=== PATIENT | male | born 1995 | race Caucasian/White ===

== ENCOUNTER 2023-03-08 09:45 | Emergency (ER) | payer OTHER ==
[~2023-03-08] VITALS: Ht 174 cm; Wt 91.0 kg
[~2023-03-08 09:45] MED LIST: BACTRIM DS1 TAB PO; CIPROFLOXACN250 MG PO; DILAUDID 2MG2 MG/TA1 PO; DOXYCYC MONO100 M1 PO; DOXYCYCL HYC100 MG PO; MEDDOSEPAK PO
[2023-03-08 09:50] VITALS: BP 135/88
[2023-03-08 10:00] VITALS: BP 143/87
[2023-03-08 10:17] LABS: BASO% 0.2 % (0-3); EOS% 1.6 % (0-8); HEMATOCRIT 46.9 % (39.0-50.0); HEMOGLOBIN 15.5 g/dl (14.0-18.0); IMMATURE GRANULOCYTES 0.7 % (0.0-5.0); LYMPH% 14.2 % (15-41); MEAN CORPUSCULAR HGB 29.1 pG CALC (26.0-32.0); MONO% 6.2 % (2-13); NEUT# 9.34 thou/uL (1.82-7.42); NEUT% 77.1 % (42-76); RED BLOOD COUNT 5.32 mill/uL (4.70-6.10); RED CELL DISTRI WIDTH 12.3 % (11.5-15.5)
[2023-03-08 10:19] LABS: MEAN CELL VOLUME 88.2 fL CALC (80.0-100.0)
[2023-03-08 10:38] LABS: ALBUMIN 4.2 g/dL (3.2-5.0); ALKALINE PHOSPHATASE 83 u/l (38-126); ANION GAP 11 (6-22 (CALC)); BUN 5 mg/dL (9-20); BUN/CREATININE RATIO 5 (12-20 (CALC)); CARBON DIOXIDE 28 mmol/l (22-30); CHLORIDE 101 mmol/l (95-108); CREATININE 1.1 mg/dL (0.7-1.3); GFR FOR AFR.AMER. > 60 ML/MIN (>=60 (CALC)); GFR OTHER RACES > 60 ML/MIN (>=60 (CALC)); LIPASE 67 u/l (23-300); POTASSIUM 3.9 mmol/l (3.5-5.1); SGOT/AST 32 u/l (17-59); SODIUM 136 mmol/l (137-146); TOTAL PROTEIN 7.6 g/dL (6.3-8.2)
[2023-03-08 10:41] VITALS: BP 135/91
[2023-03-08 11:21] LABS: URINE BILIRUBIN - DIPSTICK Negative (NEGATIVE); URINE BLOOD DIPSTICK Negative (NEGATIVE); URINE COLOR Yellow; URINE GLUCOSE - DIPSTICK Negative (NEGATIVE); URINE KETONE Negative (NEGATIVE); URINE LEUK ESTERASE Small (NEGATIVE); URINE NITRITE - DIPSTICK Negative (Negative); URINE PROTEIN - DIPSTICK Negative (NEG-TRACE); URINE UROBILINOGEN - DIPSTICK 0.2 E.U./dL (0.2)
[2023-03-08 11:37] LABS: URINE BACTERIA FEW hpf; URINE SQUAMOUS EPITHELIAL CELL RARE EPI/hpf (0-FEW)
[2023-03-08 13:05] VITALS: BP 143/87
== END 2023-03-08 13:16 | disposition home or self-care (01) | DRG 556 ==
LOC: ED 09:45
PROVIDERS: Family Medicine
DX: M25.511 Pain in right shoulder (principal); S20.212A Contusion of left front wall of thorax, initial encounter; S40.811A Abrasion of right upper arm, initial encounter; V48.6XXA Car passenger injured in noncollision transport accident in traffic accident, initial encounter
CPT/HCPCS: Q9967